=== PATIENT | male | born 1945 | race Two or more races ===

== ENCOUNTER 2016-09-16 07:52 | Day surgery (SDC) | payer MEDICARE ==
[2016-09-15 09:12] VITALS: BMI 36.0
[~2016-09-16 07:52] MED LIST: LACTATED RINGERS 1,000 ML IV SCH; LIDOCAINE 1% 20 ML VIAL (10MG/ML) FOR IV START INTRADERMA PRN
[2016-09-16 08:09] VITALS: RESP 16; TEMP 97.5
[2016-09-16] MEDS ORDERED: PROPOFOL 10 MG/ML 20 ML VIAL IV ONE (09:36)
--- NOTE | 2016-09-16 09:39 | P.GSHP ---
History of Present Illness H&P Date: 09/16/16 Chief Complaint: History of colon polyps This a 71-year-old male who presents today for colonoscopy. Patient's had previous colonoscopy has had benign adenomatous colonic polyps Past Medical History Past Medical History: Atrial Fibrillation, Atrial Flutter, Hyperlipidemia, Hypertension, Sleep Apnea/CPAP/BIPAP Additional Past Medical History / Comment(s): "ON METFORMIN, FOR PREVENTION." EYE DROPS "TO PREVENT GLAUCOMA." NO CURRENT TX FOR SLEEP APNEA. HX KIDNEY STONES. History of Any Multi-Drug Resistant Organisms: None Reported Past Surgical History: Ablation, Appendectomy, Back Surgery, Hernia Repair, Orthopedic Surgery Additional Past Surgical History / Comment(s): CARDIAC ABLATION X3. BACK SURG X4. REPAIR LT FOOT INJ. ESWL. COLONOSCOPY. Past Anesthesia/Blood Transfusion Reactions: No Reported Reaction Smoking Status: Former smoker Past Alcohol Use History: None Reported Additional Past Alcohol Use History / Comment(s): SMOKED 20 YEARS, 1 PPD, QUIT 2008. Past Drug Use History: None Reported - Past Family History Mother Family Medical History: No Reported History Medications and Allergies Home Medications Medication Instructions Recorded Confirmed Type Acidazyme 1 tab PO TID 09/15/16 09/16/16 History Adreno-Lymph 3 tab PO BID 09/15/16 09/16/16 History Cholecalciferol [Vitamin D3] 5,000 unit PO DAILY 09/15/16 09/16/16 History Diltiazem HCl [Cartia Xt] 120 mg PO HS 09/15/16 09/16/16 History Folic Acid 1 mg PO HS 09/15/16 09/16/16 History Prostagland 2 tab PO BID 09/15/16 09/16/16 History Ramipril [Altace] 10 mg PO HS 09/15/16 09/16/16 History Rosuvastatin Calcium [Crestor] 5 mg PO HS 09/15/16 09/16/16 History Travoprost [Travatan Z 0.004%] 1 drop BOTH EYES HS 09/15/16 09/16/16 History Ubidecarenone [Co Q-10] 100 mg PO DAILY 09/15/16 09/16/16 History Pamela Eyes 1 tab PO BID 09/15/16 09/16/16 History clonazePAM [KlonoPIN] 0.25 mg PO HS 09/15/16 09/16/16 History metFORMIN HCL [Metformin HCl] 500 mg PO BID 09/15/16 09/16/16 History oxyCODONE HCL [OxyCONTIN] 40 mg PO BID 09/15/16 09/16/16 History oxyCODONE HCL [Roxicodone] 30 mg PO QID 09/15/16 09/16/16 History Allergies Allergy/AdvReac Type Severity Reaction Status Date / Time aspirin Allergy Rash/Hives Verified 09/15/16 08:40 Penicillins Allergy Unknown Verified 09/15/16 08:40 Sulfa (Sulfonamide Allergy Rash/Hives Verified 09/15/16 08:40 Antibiotics) Surgical - Exam Vital Signs Temp Pulse Resp BP Pulse Ox 97.5 F L 76 16 135/86 93 L 09/16/16 08:08 09/16/16 08:08 09/16/16 08:08 09/16/16 08:08 09/16/16 08:08 - General well developed, no distress - Eyes PERRL - ENT normal pinna - Neck no masses - Respiratory normal expansion - Cardiovascular Rhythm: regular - Abdomen Abdomen: soft, non tender Assessment and Plan Plan: History of colonic polyps. We'll perform colonoscopy.
--- NOTE | 2016-09-16 09:54 | P.OP ---
Date of Procedure: 09/16/16 Preoperative Diagnosis: History, polyps Postoperative Diagnosis: Normal colonoscopy Procedure(s) Performed: Colonoscopy Implants: Anesthesia: MAC Surgeon: Rodo Michaels Pathology: none sent Condition: stable Disposition: PACU Indications for Procedure: Operative Findings: Description of Procedure: PROCEDURE: The patient was placed on the endoscopy table in the lateral position. Digital rectal examination was performed which revealed no abnormalities. The prostate was symmetrical without nodules. Flexible colonoscope was then placed in the patient's anus and passed throughout the entire colon. The ileocecal valve was visualized. The cecum, ascending, transverse, descending and sigmoid colon were normal. The rectum was normal as well. There were no masses, polyps or diverticula noted in the entire colon. SUMMARY OF FINDINGS: Normal colonoscopy.
[2016-09-16 10:14] VITALS: BP 134/86; PULSE 66
== END 2016-09-16 10:34 | disposition home or self-care (01) ==
LOC: ORWHC2ENDO 07:52
PROVIDERS: ATTEND Surgery
DX: Z12.11 Encounter for screening for malignant neoplasm of colon (principal); Z86.010 Personal history of colon polyps; I48.91 Unspecified atrial fibrillation; I48.92 Unspecified atrial flutter; E78.5 Hyperlipidemia, unspecified; G47.33 Obstructive sleep apnea (adult) (pediatric); I10 Essential (primary) hypertension; M54.5 Low back pain; G89.29 Other chronic pain; Z99.89 Dependence on other enabling machines and devices; Z79.84 Long term (current) use of oral hypoglycemic drugs; Z79.891 Long term (current) use of opiate analgesic; Z79.899 Other long term (current) drug therapy; Z88.6 Allergy status to analgesic agent; Z88.0 Allergy status to penicillin; Z88.2 Allergy status to sulfonamides; Z87.891 Personal history of nicotine dependence
CPT/HCPCS: J2704; G0105

== ENCOUNTER → 2016-10-05 | Outpatient (CLI) | payer MEDICARE ==
--- NOTE | 2016-10-05 17:11 | CT ---
EXAMINATION TYPE: CT chest wo con DATE OF EXAM: 10/05/2016 COMPARISON: NONE HISTORY: Left mid lung nodule CT DLP: 627.2 mGycm. Automated Exposure Control for Dose Reduction was Utilized. TECHNIQUE: CT scan of the thorax is performed without IV contrast. FINDINGS: There is some apical scarring present bilaterally. There is atelectatic change at the lung bases. No parenchymal nodule is seen. There is no significant axillary, mediastinal or hilar adenopathy. There is no pleural or pericardial fluid. The heart is not enlarged. There are coronary artery calcifications as well as other vascular calcifications. Visualized portions of the upper abdomen are unremarkable. There is hypertrophic spondylosis within the dorsal spine.. IMPRESSION: 1. NO DEFINITE PULMONARY NODULE. 2. CORONARY ARTERY CALCIFICATIONS WELL OTHER VASCULAR CALCIFICATIONS. 3. DEGENERATIVE CHANGES WITHIN THE SPINE.
== END | disposition home or self-care (01) ==
LOC: RADCTMAIN 15:30
PROVIDERS: ATTEND General Practice
DX: I25.10 Atherosclerotic heart disease of native coronary artery without angina pectoris (principal)
CPT/HCPCS: 71250

== ENCOUNTER 2020-04-15 18:52 | Emergency (ER) | payer MEDICARE ==
[2020-04-15 18:57] VITALS: RESP 18; TEMP 97.7
[2020-04-15] MEDS ORDERED: MAG HYDROX/AL HYDROX/SIMETH 30 ML, HYOSCYAMINE ELIXIR 10 ML PO STA ×2 (19:25)
--- NOTE | 2020-04-15 19:28 | ED ---
General Adult HPI - General Chief complaint: Chest Pain Stated complaint: chest pain Time Seen by Provider: 04/15/20 18:55 Source: patient, RN notes reviewed, old records reviewed Mode of arrival: wheelchair Limitations: no limitations - History of Present Illness Initial comments: This is a 75-year-old male who presents emergency Department with a history of high blood pressure and high cholesterol. Patient also has a past medical history of A. fib and he has had an ablation a couple of times. Patient comes in today because over the last 3 days every time he swallows he feels a pain in his chest. Patient states it is not swallowing he typically does not have the pain. Patient denies any fever or chills. Patient denies a cough. Patient sta vivi he has felt short of breath but that is been something that is been ongoing for the last 3 months. Patient denies any smoking history or cardiac history aside from the A. fib. Patient denies any abdominal pain patient denies nausea vomiting or diarrhea. Patient states she's been on clindamycin about a week now for some dental procedure. - Related Data Home Medications Medication Instructions Recorded Confirmed Adreno-Lymph 3 tab PO BID 09/15/16 04/15/20 Diltiazem HCl [Cartia Xt] 120 mg PO HS 09/15/16 04/15/20 Prostagland 2 tab PO BID 09/15/16 04/15/20 Ramipril [Altace] 10 mg PO HS 09/15/16 04/15/20 Pamela Eyes 1 tab PO BID 09/15/16 04/15/20 clonazePAM [KlonoPIN] 0.5 mg PO BID 09/15/16 04/15/20 oxyCODONE HCL [OxyCONTIN] 40 mg PO BID 09/15/16 04/15/20 oxyCODONE HCL [Roxicodone] 30 mg PO QID 09/15/16 04/15/20 Apixaban [Eliquis] 5 mg PO BID 04/15/20 04/15/20 Brimonidine Tartrate [Alphagan P 1 drops BOTH EYES BID 04/15/20 04/15/20 0.1% Ophth Soln] Fish Oil/Dha/Epa [Fish Oil 1,200 1 cap PO HS 04/15/20 04/15/20 mg Fish Oil] Flaxseed Oil 1,000 mg PO HS 04/15/20 04/15/20 Heart Matrix 2 tab PO TID 04/15/20 04/15/20 Ketoconazole [Nizoral A-D] 1 applic TOPICAL Q7D PRN 04/15/20 04/15/20 Lactulose 10 gm PO BID PRN 04/15/20 04/15/20 Lower Bowel Simulator 3 tab PO HS 04/15/20 04/15/20 Magnesium Oxide [Magox 400] 400 mg PO HS 04/15/20 04/15/20 Metoprolol Succinate [Toprol XL] 25 mg PO HS 04/15/20 04/15/20 Naloxegol Oxalate [Movantik] 25 mg PO DAILY 04/15/20 04/15/20 Pravastatin Sodium [Pravachol] 40 mg PO HS 04/15/20 04/15/20 Pregabalin [Lyrica] 100 mg PO HS 04/15/20 04/15/20 Renal Plus 1 cap PO HS 04/15/20 04/15/20 Saw [place] 320 mg PO TID 04/15/20 04/15/20 clindamycin HCL [Cleocin] 150 mg PO QID 04/15/20 04/15/20 metFORMIN HCL ER [Glucophage Xr] 500 mg PO W/SUPPER 04/15/20 04/15/20 Allergies Allergy/AdvReac Type Severity Reaction Status Date / Time aspirin Allergy Rash/Hives Verified 04/15/20 20:36 Penicillins Allergy Unknown Verified 04/15/20 20:36 Sulfa (Sulfonamide Allergy Rash/Hives Verified 04/15/20 20:36 Antibiotics) ciprofloxacin [From Cipro] AdvReac Rash/Hives Verified 04/15/20 20:36 Review of Systems ROS Statement: Those systems with pertinent positive or pertinent negative responses have been documented in the HPI. ROS Other: All systems not noted in ROS Statement are negative. Past Medical History Past Medical History: Atrial Fibrillation, Atrial Flutter, Hyperlipidemia, Hypertension, Sleep Apnea/CPAP/BIPAP Additional Past Medical History / Comment(s): "ON METFORMIN, FOR PREVENTION." EYE DROPS "TO PREVENT GLAUCOMA." NO CURRENT TX FOR SLEEP APNEA. HX KIDNEY STONES. History of Any Multi-Drug Resistant Organisms: None Reported Past Surgical History: Ablation, Appendectomy, Back Surgery, Hernia Repair, Orthopedic Surgery Additional Past Surgical History / Comment(s): CARDIAC ABLATION X3. BACK SURG X4. REPAIR LT FOOT INJ. ESWL. COLONOSCOPY. Past Anesthesia/Blood Transfusion Reactions: No Reported Reaction Past Psychological History: No Psychological Hx Reported Smoking Status: Former smoker Past Alcohol Use History: None Reported Past Drug Use History: None Reported - Past Family History Mother Family Medical History: No Reported History General Exam - General Exam Comments Initial Comments: GENERAL: Patient is well-developed and well-nourished. Patient is nontoxic and well- hydrated and is in mild distress. ENT: Neck is soft and supple. No significant lymphadenopathy is noted. Oropharynx is clear. Moist mucous membranes. Neck has full range of motion without eliciting any pain. EYES: The sclera were anicteric and conjunctiva were pink and moist. Extraocular movements were intact and pupils were equal round and reactive to light. Eyelids were unremarkable. PULMONARY: Unlabored respirations. Good breath sounds bilaterally. No audible rales rhonchi or wheezing was noted. CARDIOVASCULAR: There is a regular rate and rhythm without any murmurs gallops or rubs. ABDOMEN: Soft and nontender with normal bowel sounds. SKIN: Skin is clear with no lesions or rashes and otherwise unremarkable. NEUROLOGIC: Patient is alert and oriented x3. Cranial nerves II through XII are grossly intact. Motor and sensory are also intact. Normal speech, volume and content. Symmetrical smile. MUSCULOSKELETAL: Normal extremities with adequate strength and full range of motion. LYMPHATICS: No significant lymphadenopathy is noted PSYCHIATRIC: Normal psychiatric evaluation. Limitations: no limitations Course Vital Signs 04/15/20 18:53 Temperature 97.7 F Pulse Rate 90 Respiratory 18 Rate Blood Pressure 160/87 O2 Sat by Pulse 96 Oximetry Medical Decision Making - Medical Decision Making EKG shows sinus rhythm at a rate of 89 bpm. It was 226 QRS is 94 QT interval 37 2 QTC is 452. Patient's EKG shows a PVC but there is no ST segment elevation or depression. Chest x-ray shows no acute abnormality. Patient states the GI cocktail seemed to take away the pain when he swallow. Patient currently is pain-free. Patient states at no time did he have any constant chest pain other than when he swallows and he denies any diaphoretic episodes. Patient states he has a history of a hiatal hernia and he believes it is somehow related. Patient will take Prilosec for a week and make an appointment with his physician and he is also going to return if there is any consistent chest pain or significant shortness of breath. - Lab Data Result diagrams: 04/15/20 19:34 04/15/20 19:34 Lab Results 04/15/20 04/15/20 04/15/20 Range/Units 19:34 19:34 19:34 WBC 11.0 H (3.8-10.6) k/uL RBC 4.66 (4.30-5.90) m/uL Hgb 14.2 (13.0-17.5) gm/dL Hct 43.4 (39.0-53.0) % MCV 93.0 (80.0-100.0) fL MCH 30.3 (25.0-35.0) pg MCHC 32.6 (31.0-37.0) g/dL RDW 13.7 (11.5-15.5) % Plt Count 191 (150-450) k/uL MPV 8.1 Neutrophils % 72 % Lymphocytes % 18 % Monocytes % 7 % Eosinophils % 2 % Basophils % 1 % Neutrophils # 7.9 H (1.3-7.7) k/uL Lymphocytes # 2.0 (1.0-4.8) k/uL Monocytes # 0.7 (0-1.0) k/uL Eosinophils # 0.2 (0-0.7) k/uL Basophils # 0.1 (0-0.2) k/uL PT 9.6 (9.0-12.0) sec INR 0.9 (<1.2) APTT 25.5 (22.0-30.0) sec D-Dimer 0.34 (<0.60) mg/L FEU Sodium 137 (137-145) mmol/L Potassium 4.3 (3.5-5.1) mmol/L Chloride 102 (98-107) mmol/L Carbon Dioxide 31 H (22-30) mmol/L Anion Gap 4 mmol/L BUN 21 H (9-20) mg/dL Creatinine 0.62 L (0.66-1.25) mg/dL Est GFR (CKD-EPI)AfAm >90 (>60 ml/min/1.73 sqM) Est GFR (CKD-EPI)NonAf >90 (>60 ml/min/1.73 sqM) Glucose 131 H (74-99) mg/dL Calcium 9.2 (8.4-10.2) mg/dL Magnesium 1.7 (1.6-2.3) mg/dL Total Bilirubin 0.3 (0.2-1.3) mg/dL AST 25 (17-59) U/L ALT 21 (4-49) U/L Alkaline Phosphatase 75 (38-126) U/L Troponin I (0.000-0.034) ng/mL Total Protein 6.8 (6.3-8.2) g/dL Albumin 3.9 (3.5-5.0) g/dL 04/15/20 Range/Units 19:34 WBC (3.8-10.6) k/uL RBC (4.30-5.90) m/uL Hgb (13.0-17.5) gm/dL Hct (39.0-53.0) % MCV (80.0-100.0) fL MCH (25.0-35.0) pg MCHC (31.0-37.0) g/dL RDW (11.5-15.5) % Plt Count (150-450) k/uL MPV Neutrophils % % Lymphocytes % % Monocytes % % Eosinophils % % Basophils % % Neutrophils # (1.3-7.7) k/uL Lymphocytes # (1.0-4.8) k/uL Monocytes # (0-1.0) k/uL Eosinophils # (0-0.7) k/uL Basophils # (0-0.2) k/uL PT (9.0-12.0) sec INR (<1.2) APTT (22.0-30.0) sec D-Dimer (<0.60) mg/L FEU Sodium (137-145) mmol/L Potassium (3.5-5.1) mmol/L Chloride (98-107) mmol/L Carbon Dioxide (22-30) mmol/L Anion Gap mmol/L BUN (9-20) mg/dL Creatinine (0.66-1.25) mg/dL Est GFR (CKD-EPI)AfAm (>60 ml/min/1.73 sqM) Est GFR (CKD-EPI)NonAf (>60 ml/min/1.73 sqM) Glucose (74-99) mg/dL Calcium (8.4-10.2) mg/dL Magnesium (1.6-2.3) mg/dL Total Bilirubin (0.2-1.3) mg/dL AST (17-59) U/L ALT (4-49) U/L Alkaline Phosphatase (38-126) U/L Troponin I <0.012 (0.000-0.034) ng/mL Total Protein (6.3-8.2) g/dL Albumin (3.5-5.0) g/dL Disposition Clinical Impression: Gastroesophageal reflux disease Disposition: HOME SELF-CARE Condition: Good Instructions (If sedation given, give patient instructions): Chest Pain (ED), Gastroesophageal Reflux Disease (ED) Additional Instructions: Patient should take Prilosec 20 mg by mouth daily Is patient prescribed a controlled substance at d/c from ED?: No Referrals: Nonstaff,Physician [REFERRING] - 1-2 days Time of Disposition: 20:58
[2020-04-15 19:55] LABS: Basophils # (A) 0.1 k/uL (0-0.2); Basophils % (A) 1 %; Eosinophils # (A) 0.2 k/uL (0-0.7); Eosinophils % (A) 2 %; HCT 43.4 % (39.0-53.0); HGB 14.2 gm/dL (13.0-17.5); Lymphocytes % (A) 18 %; MCH 30.3 pg (25.0-35.0); MCHC 32.6 g/dL (31.0-37.0); Mean Platelet Volume 8.1; Monocytes # (A) 0.7 k/uL (0-1.0); Monocytes % (A) 7 %; Neutrophils # (A) 7.9 k/uL (1.3-7.7); Neutrophils % (A) 72 %; Platelet Count 191 k/uL (150-450); RBC 4.66 m/uL (4.30-5.90); RDW 13.7 % (11.5-15.5)
[2020-04-15 20:02] LABS: ALT 21 U/L (4-49); AST 25 U/L (17-59); African American GFR (CKD) >90 (>60 ml/min/1.73 sqM); Albumin 3.9 g/dL (3.5-5.0); Alkaline Phosphatase 75 U/L (38-126); Anion Gap 4 mmol/L; Blood Urea Nitrogen 21 mg/dL (9-20); Calcium 9.2 mg/dL (8.4-10.2); Carbon Dioxide 31 mmol/L (22-30); Chloride 102 mmol/L (98-107); Glucose 131 mg/dL (74-99); Magnesium 1.7 mg/dL (1.6-2.3); Non-African American GFR(CKD) >90 (>60 ml/min/1.73 sqM); Potassium 4.3 mmol/L (3.5-5.1); Sodium 137 mmol/L (137-145); Total Bilirubin 0.3 mg/dL (0.2-1.3); Total Protein 6.8 g/dL (6.3-8.2)
--- NOTE | 2020-04-15 20:11 | XR ---
EXAMINATION TYPE: XR chest 2V DATE OF EXAM: 04/15/2020 COMPARISON: 10/31/2016 INDICATION: Chest pain TECHNIQUE: Frontal and lateral views of the chest are obtained. FINDINGS: The heart size is normal. The pulmonary vasculature is normal. The lungs are clear. IMPRESSION: 1. No acute pulmonary process.
[2020-04-15 20:13] LABS: D-Dimer 0.34 mg/L FEU (<0.60); INR 0.9 (<1.2); Partial Thromboplastin Time 25.5 sec (22.0-30.0); Prothrombin Time 9.6 sec (9.0-12.0)
[2020-04-15] MEDS ORDERED: PANTOPRAZOLE 40 MG TABLET PO STA (20:55)
[2020-04-15 20:57] VITALS: BP 128/72; PULSE 84
== END 2020-04-15 21:07 | disposition home or self-care (01) ==
LOC: EC 18:52
DX: K21.9 Gastro-esophageal reflux disease without esophagitis (principal); R06.02 Shortness of breath; I48.91 Unspecified atrial fibrillation; I48.92 Unspecified atrial flutter; E78.5 Hyperlipidemia, unspecified; I10 Essential (primary) hypertension; Z79.899 Other long term (current) drug therapy; Z79.01 Long term (current) use of anticoagulants; Z87.19 Personal history of other diseases of the digestive system; Z87.891 Personal history of nicotine dependence; Z88.6 Allergy status to analgesic agent; Z88.0 Allergy status to penicillin; Z88.2 Allergy status to sulfonamides; Z88.1 Allergy status to other antibiotic agents; Z87.442 Personal history of urinary calculi; Z98.890 Other specified postprocedural states
CPT/HCPCS: 36415; 71046; 80053; 83735; 84484; 85025; 85379; 85610; 85730; 93005; 99285